=== PATIENT | female | born 1990 | race Two or more races ===

== ENCOUNTER 2025-05-11 12:12 | Observation (INO) | payer BC ==
[~2025-05-11] VITALS: Ht 165.1 cm; Wt 81.6 kg
--- NOTE | 2025-05-11 22:56 | DVHDS2 ---
Discharge Summary Date of Admission May 11, 2025 at 12:12 Date of Discharge: May 11, 2025 Admitting Diagnosis 38 weeks Back pain rule out labor and pyelonephritis Brief Hx & Hospital Course: NST performed reactive, Back pain no labor no Pyelonephritis Condition at Discharge: Good Final Diagnosis/Problems List 38 weeks reasuring heart tones, US reasuring Discharge Disposition: Home Discharge Instruct/Medications Diet: Regular Activity: Light activity No Active Prescriptions or Reported Meds Discharge Statement: "Patient was advised to return to the ER or call 911 if any headaches, dizziness, shortness of breath, chest pain, abdominal pain, bleeding, fevers, or worsening of medical condition. Patient was counseled about treatment plan, medications, possible side effects, patientverbalized understanding. All questions were answered to the best of my ability. This discharge took greater then 30 minutes in planning, reviewing documentation, counseling the patient, and discussing with other team members." ASSESSMENT ASSESSMENT Assessment Visit Coding OBGYN Date of Service: May 11, 2025 Billing Provider: GREY NIXON DO [employer] Common Visit Codes: [id number] INP/OBS CARE(HIGH), 45000-JAV/OBS SAME DATE (LOW), 79322-XDK/OBS SAME DATE (MOD) [employer] WORK[employer] Procedure Codes: 71410-80- NON-STRESS TEST GREY NIXON DO May 11, 2025 22:56
== END 2025-05-11 13:28 | disposition home or self-care (01) ==
LOC: LDRP 12:12
PROVIDERS: ADMIT Obstetrics & Gynecology; ATTEND Obstetrics & Gynecology
DX: O99.891 Other specified diseases and conditions complicating pregnancy (principal); M54.9 Dorsalgia, unspecified; O62.9 Abnormality of forces of labor, unspecified; Z3A.38 38 weeks gestation of pregnancy; Z79.899 Other long term (current) drug therapy
CPT/HCPCS: 59025; 81002; 94760; G0378